=== PATIENT | female | born 1985 | race Caucasian/White ===

== ENCOUNTER 2016-05-05 18:52 | Inpatient (IN) | payer BC, OTHER ==
[2016-05-08] MEDS ORDERED: OXYTOCIN 10 UNIT/ML 1 ML VIAL IM PRN (06:02)
[2016-05-08] MEDS ORDERED: TERBUTALINE 1 MG/ML VIAL SQ PRN (06:02)
[2016-05-08] MEDS ORDERED: METHYLERGONOVINE 0.2 MG/ML 1 ML AMP IM PRN (06:02)
[2016-05-08] MEDS ORDERED: LIDOCAINE 1% (PF) 10 MG/ML (30 ML SDV) SQ PRN (06:02)
[2016-05-08] MEDS ORDERED: CARBOPROST TROMETHAMINE 250 MCG/ML 1 ML AMP IM PRN (06:02)
[2016-05-08 06:11] VITALS: BMI 39.1
[2016-05-08] MEDS ORDERED: OXYTOCIN 30 UNITS/500 ML NS 30 UNIT in SALINE 1 500ML.BAG IV SCH ×2 (06:15→17:15)
[2016-05-08 06:19] LABS: Basophils # (A) 0.1 k/uL (0-0.2); Basophils % (A) 1 %; CH 28.9; CHCM 33.7; Eosinophils # (A) 0.4 k/uL (0-0.7); Eosinophils % (A) 2 %; HCT 35.4 % (34.0-46.0); HDW 3.04; HGB 11.7 gm/dL (11.4-16.0); Luc # (Auto) 0.21; Luc % (Auto) 1; Lymphocytes # (A) 2.5 k/uL (1.0-4.8); Lymphocytes % (A) 16 %; MCH 28.5 pg (25.0-35.0); MCHC 33.1 g/dL (31.0-37.0); MCV 86.1 fL (80.0-100.0); Mean Platelet Volume 8.5; Monocytes # (A) 0.6 k/uL (0-1.0); Monocytes % (A) 4 %; Neutrophils # (A) 11.5 k/uL (1.3-7.7); Neutrophils % (A) 75 %; RBC 4.11 m/uL (3.80-5.40); RDW 13.4 % (11.5-15.5); WBC 15.3 k/uL (3.8-10.6); WBC (Perox) 15.79
[2016-05-08] MEDS: LACTATED RINGERS 1,000 ML IV SCH ×3 (06:24→17:38)
--- NOTE | 2016-05-08 09:14 | P.HPOB ---
History of Present Illness H&P Date: 05/08/16 Chief Complaint: induction of labor 30 year old presents at 40 weeks 3 days for induction of labor. Her cervix is 2/60/-2 and she is melisa irregularly. heart tones are 135-140 with moderate variability and reactive. Review of Systems All systems: negative Constitutional: Denies chills, Denies fever Eyes: denies blurred vision, denies pain Ears, nose, mouth and throat: Denies headache, Denies sore throat Cardiovascular: Denies chest pain, Denies shortness of breath Respiratory: Denies cough Gastrointestinal: Denies abdominal pain, Denies diarrhea, Denies nausea, Denies vomiting Genitourinary: Denies dysuria, Denies hematuria Musculoskeletal: Denies myalgias Integumentary: Denies pruritus, Denies rash Neurological: Denies numbness, Denies weakness Psychiatric: Denies anxiety, Denies depression Endocrine: Denies fatigue, Denies weight change Past Medical History Past Medical History: No Reported History Additional Past Medical History / Comment(s): OB history: First was a vaginal delivery. This is her second and she has had care with me since 12 weeks. A+, abs neg, Rub Imm, RPR NR, Hep B neg, HIV NR. normal anatomy US. abnormal 1hr but normal 3hr GTT. History of Any Multi-Drug Resistant Organisms: None Reported Past Surgical History: No Surgical Hx Reported Additional Past Surgical History / Comment(s): [place] tooth extractions Past Anesthesia/Blood Transfusion Reactions: No Reported Reaction Past Psychological History: No Psychological Hx Reported Smoking Status: Current every day smoker Past Alcohol Use History: None Reported Past Drug Use History: None Reported - Past Family History Father Family Medical History: Hypertension Mother Family Medical History: Cancer, COPD Additional Family Medical History / Comment(s): of pancreatic cancer Medications and Allergies Home Medications Medication Instructions Recorded Confirmed Type Pnv with Ca,No.72/Iron/FA 1 tab PO DAILY 12/03/15 05/08/16 History [ Plus Tablet] Allergies Allergy/AdvReac Type Severity Reaction Status Date / Time amoxicillin Allergy Anaphylaxis Verified 05/08/16 06:01 Penicillins Allergy Anaphylaxis Verified 05/08/16 06:01 Exam Osteopathic Statement: *. No significant issues noted on an osteopathic structural exam other than those noted in the History and Physical/Consult. - Vital Signs Vital signs: Vital Signs Temp Pulse Resp BP 05/08/16 06:05 96.9 F L 73 16 134/81 Intake and Output 05/07/16 05/08/16 05/08/16 22:59 06:59 14:59 Other: Weight 106.594 kg HEart: RRR Lungs: CTAB ABdomen: soft, nontender Extremeties: neg hossein's Results Result Diagrams: 05/08/16 06:12 Abnormal Lab Results - Last 24 Hours (Table) 05/08/16 Range/Units 06:12 WBC 15.3 H (3.8-10.6) k/uL Neutrophils # 11.5 H (1.3-7.7) k/uL Assessment and Plan (1) Normal labor Status: Acute Plan: 1. Induction of labor with amniotomy and pitocin 2. anticipate normal vaginal delivery
[2016-05-08] MEDS ORDERED: BUTORPHANOL 1 MG/ML 1 ML VIAL IV PRN (12:36)
[2016-05-08] MEDS ORDERED: fentaNYL (PF) 50 MCG/ML 5 ML AMP ONE (13:49)
[2016-05-08] MEDS ORDERED: BUPIVACAINE (PF) 0.25% 30 ML VIAL ONE (13:49)
[2016-05-08] MEDS ORDERED: SODIUM CHLORIDE 0.9% 100 ML BAG ONE (13:49)
[2016-05-08] MEDS ORDERED: BUPIVACAINE (PF) 0.25% 25 ML, fentaNYL (PF) 200 MCG in SODIUM CHLORIDE 0.9% 71 ML EPIDURAL ONE (14:08)
[2016-05-08] MEDS ORDERED: diphenhydrAMINE 50 MG CAP PO PRN (17:04)
[2016-05-08] MEDS ORDERED: ACETAMINOPHEN TAB 325 MG TAB PO PRN (17:04)
[2016-05-08] MEDS ORDERED: LANOLIN CREAM 5 GM TUBE TOPICAL PRN (17:04)
[2016-05-08] MEDS ORDERED: diphenhydrAMINE 25 MG CAP PO PRN (17:04)
[2016-05-08] MEDS ORDERED: SIMETHICONE 80 MG CHEWABLE PO PRN (17:04)
[2016-05-08] MEDS ORDERED: diphenhydrAMINE 50 MG/ML 1 ML VIAL IVP PRN ×2 (17:04)
[2016-05-08] MEDS ORDERED: HYDROCORTISONE 2.5% RECTAL CREAM 30 GM TUBE RECTAL PRN (17:04)
[2016-05-08] MEDS ORDERED: ZOLPIDEM 5 MG TAB PO PRN (17:04)
[2016-05-08] MEDS ORDERED: Acetaminophen-Codeine 300-30mg TAB PO PRN (17:04)
--- NOTE | 2016-05-08 17:06 | P.PROBDLV ---
Vaginal Delivery Note - . Vaginal Delivery Note: 30-year-old presented at 40 weeks and 3 days for induction of labor. Her cervix was 2 cm dilated, 60% effaced, -2 station. heart tones 130-135 with moderate variability and reactive. Amniotomy was performed at 9:07 AM, clear fluid noted. Pitocin was also started. When she was about 5 cm she did get an epidural. Her cervix was completely dilated by 1643. She pushed, and delivered a viable male over midline episiotomy under epidural anesthesia at 1649. Head delivered OA, anterior shoulder delivered gentle downward traction followed by posterior shoulder and rest of body. Nose and mouth bulb suctioned, cord clamped and cut, placed on mother's abdomen. Apgars 9, 9, weight 9 lbs. 8 oz. Placenta delivered spontaneously, intact with three-vessel cord at 1651. Vagina, cervix, and perineum were inspected. Second degree midline episiotomy was repaired with 2-0, and 3-0 Vicryl. Estimated blood loss 200 mL. Mother and baby in stable condition.
[2016-05-08] MEDS: WITCH HAZEL 1 EACH MED..PAD TOPICAL PRN (17:38)
[2016-05-08] MEDS: BENZOCAINE/MENTHOL SPRAY 1 GM/SPRAY AEROSOL TOPICAL PRN (17:38)
[2016-05-08] MEDS: SENNOSIDES-DOCUSATE SODIUM 1 EACH TAB PO SCH (19:30)
[2016-05-08] MEDS: Acetaminophen-Codeine 300-30mg TAB PO PRN (20:03)
[2016-05-09] MEDS: IBUPROFEN 600 MG TAB PO PRN ×2 (00:25→12:23)
[2016-05-09] MEDS: Acetaminophen-Codeine 300-30mg TAB PO PRN ×2 (03:54→08:47)
--- NOTE | 2016-05-09 07:20 | P.DS ---
Providers Date of admission: 05/08/16 05:51 Expected date of discharge: 05/09/16 Attending physician: Patience Glasgow Primary care physician: Robert Mcclain - Discharge Diagnosis(es) (1) Normal labor Current Visit: Yes Status: Resolved (2) Normal vaginal delivery Current Visit: Yes Status: Acute Hospital Course: Patient presented for induction of labor at 40 weeks and 3 days. She underwent a normal vaginal delivery. Her course was uncomplicated. She is having some perineal pain control with Motrin and Tylenol 3. She denies nausea , vomiting, chest pain, shortness of breath or calf pain. She'll be discharged home on day #1 in stable condition to follow-up with me in 6 weeks. Plan - Discharge Summary New Discharge Prescriptions: Acetaminophen-Codeine 300-30mg [Tylenol w/codeine #3] 2 each PO Q4HR PRN #30 tab PRN Reason: Moderate To Severe Pain Ibuprofen [Motrin] 600 mg PO Q6HR PRN #30 tab PRN Reason: Mild Pain Or Fever >= 100.5 Discharge Medication List Pnv with Ca,No.72/Iron/FA [ Plus Tablet] 1 tab PO DAILY 12/03/15 [ History] Acetaminophen-Codeine 300-30mg [Tylenol w/codeine #3] 2 each PO Q4HR PRN #30 tab 05/09/16 [Rx] Ibuprofen [Motrin] 600 mg PO Q6HR PRN #30 tab 05/09/16 [Rx] Follow up Appointment(s)/Referral(s): Patience Glasgow DO [Doctor of Osteopathic Medicine] - 6 Weeks Discharge Disposition: HOME SELF-CARE
[2016-05-09] MEDS: SENNOSIDES-DOCUSATE SODIUM 1 EACH TAB PO SCH (08:53)
[2016-05-09 12:16] VITALS: PULSE 72
[2016-05-09 16:58] VITALS: BP 123/73; RESP 17; TEMP 98.4
[2016-05-09] MEDS: BENZOCAINE/MENTHOL SPRAY 1 GM/SPRAY AEROSOL TOPICAL PRN (17:45)
[2016-05-09] MEDS: WITCH HAZEL 1 EACH MED..PAD TOPICAL PRN (17:45)
== END 2016-05-09 17:50 | disposition home or self-care (01) | DRG 775 ==
LOC: 4FBP 05-08 05:51
PROVIDERS: ADMIT Obstetrics & Gynecology; ATTEND Obstetrics & Gynecology
PROC: 3E0R3CZ (ICD-10-PCS; principal; 2016-05-08)
PROC: 10E0XZZ Delivery of Products of Conception, External Approach (ICD-10-PCS; principal; 2016-05-08)
PROC: 3E033VJ Introduction of Other Hormone into Peripheral Vein, Percutaneous Approach (ICD-10-PCS; principal; 2016-05-08)
PROC: 10907ZC Drainage of Amniotic Fluid, Therapeutic from Products of Conception, Via Natural or Artificial Opening (ICD-10-PCS; principal; 2016-05-08)
PROC: 0W8NXZZ Division of Female Perineum, External Approach (ICD-10-PCS; principal; 2016-05-08)
PROC: 00HU33Z Insertion of Infusion Device into Spinal Canal, Percutaneous Approach (ICD-10-PCS; principal; 2016-05-08)
DX: O48.0 Post-term pregnancy (principal); F17.200 Nicotine dependence, unspecified, uncomplicated; Z37.0 Single live birth; O99.334 Smoking (tobacco) complicating childbirth; Z3A.40 40 weeks gestation of pregnancy; Z88.0 Allergy status to penicillin
CPT/HCPCS: 85025; 88307

== ENCOUNTER → 2019-01-31 | Outpatient (CLI) | payer BC ==
[2019-01-31 10:06] LABS: Basophils # (A) 0.1 k/uL (0-0.2); Basophils % (A) 1 %; Eosinophils # (A) 0.3 k/uL (0-0.7); Eosinophils % (A) 2 %; HCT 43.1 % (34.0-46.0); Lymphocytes # (A) 2.5 k/uL (1.0-4.8); Lymphocytes % (A) 15 %; MCH 30.8 pg (25.0-35.0); MCHC 32.5 g/dL (31.0-37.0); Mean Platelet Volume 7.2; Monocytes # (A) 0.7 k/uL (0-1.0); Monocytes % (A) 4 %; Neutrophils # (A) 12.4 k/uL (1.3-7.7); Neutrophils % (A) 76 %; Platelet Count 301 k/uL (150-450); RBC 4.53 m/uL (3.80-5.40); RDW 12.5 % (11.5-15.5); WBC 16.3 k/uL (3.8-10.6)
== END | disposition home or self-care (01) ==
LOC: LABPAT 08:40
PROVIDERS: ATTEND Obstetrics & Gynecology
DX: Z01.812 Encounter for preprocedural laboratory examination (principal)
CPT/HCPCS: 85025

== ENCOUNTER 2019-02-07 06:57 | Day surgery (SDC) | payer BC ==
[2019-02-05 15:59] VITALS: BMI 35.7
[~2019-02-07 06:57] MED LIST: DEXAMETHASONE SOD PHOSPHATE 10 MG/ML 1 ML VIAL IV ONE; HYDROmorphone 0.5 MG/0.5 ML SYRINGE IVP PRN; LACTATED RINGERS 1,000 ML IV SCH; MIDAZOLAM 2 MG/2 ML VIAL IV PRN; ONDANSETRON 4 MG/2 ML VIAL IVP ONE; Pre Op ABX Message 1 EACH MISC MISCELLANE ONE; SCOPOLAMINE 1.5MG/72HR PATCH TRANSDERM ONE
[2019-02-07] MEDS ORDERED: LIDOCAINE 1% 20 ML VIAL (10MG/ML) FOR IV START INTRADERMA ONE (07:29)
--- NOTE | 2019-02-07 07:43 | P.HPOB ---
History of Present Illness H&P Date: 02/07/19 Chief Complaint: Family planning 33 year old presents for laparoscopic tubal ligation. Review of Systems All systems: negative Constitutional: Denies chills, Denies fever Eyes: denies blurred vision, denies pain Ears, nose, mouth and throat: Denies headache, Denies sore throat Cardiovascular: Denies chest pain, Denies shortness of breath Respiratory: Denies cough Gastrointestinal: Denies abdominal pain, Denies diarrhea, Denies nausea, Denies vomiting Genitourinary: Denies dysuria, Denies hematuria Musculoskeletal: Denies myalgias Integumentary: Denies pruritus, Denies rash Neurological: Denies numbness, Denies weakness Psychiatric: Denies anxiety, Denies depression Endocrine: Denies fatigue, Denies weight change Past Medical History Past Medical History: No Reported History Additional Past Medical History / Comment(s): small stomach ulcer History of Any Multi-Drug Resistant Organisms: None Reported Past Surgical History: No Surgical Hx Reported Additional Past Surgical History / Comment(s): [place] tooth extractions Past Anesthesia/Blood Transfusion Reactions: No Reported Reaction Additional Past Anesthesia/Blood Transfusion Reaction / Comment(s): never has had general anesthesia or blood transfusion Smoking Status: Current every day smoker - Past Family History Father Family Medical History: Hypertension Mother Family Medical History: Cancer, COPD Additional Family Medical History / Comment(s): of pancreatic cancer Medications and Allergies Home Medications Medication Instructions Recorded Confirmed Type No Known Home Medications 02/05/19 02/07/19 History Allergies Allergy/AdvReac Type Severity Reaction Status Date / Time amoxicillin Allergy Anaphylaxis Verified 02/07/19 07:16 Penicillins Allergy Anaphylaxis Verified 02/07/19 07:16 Exam Osteopathic Statement: *. No significant issues noted on an osteopathic structural exam other than those noted in the History and Physical/Consult. Vital Signs Temp Pulse Resp Pulse Ox 02/07/19 07:16 97.5 F L 60 16 98 Intake and Output 02/06/19 02/07/19 02/07/19 22:59 06:59 14:59 Other: Weight 97.749 kg Heart: Regular rate and rhythm Lungs: Clear to auscultation bilaterally Abdomen: Soft, nontender Extremities: Negative Homans sign Assessment and Plan (1) Family planning Current Visit: Yes Status: Acute Code(s): Z30.09 - ENCOUNTER FOR OTH GENERAL CNSL AND ADVICE ON CONTRACEPTION SNOMED Code(s): 737002346 Plan: 1. Laparoscopic tubal ligation
[2019-02-07] MEDS ORDERED: BUPIVACAINE (PF) 0.25% 30 ML VIAL SQ ONE ×2 (07:56→08:32)
[2019-02-07] MEDS ORDERED: LIDOCAINE 1% INJ 10MG/ML (20 ML MDV) ONE (07:58)
[2019-02-07] MEDS ORDERED: ROCURONIUM BROMIDE 10 MG/ML 10 ML VIAL IV ONE (07:58)
[2019-02-07] MEDS ORDERED: fentaNYL (PF) 50 MCG/ML 2 ML AMP ONE (07:58)
[2019-02-07] MEDS ORDERED: HYDROmorphone (PF) 1 MG/ML ONE (07:58)
[2019-02-07] MEDS ORDERED: PROPOFOL 10 MG/ML 20 ML VIAL IV ONE (07:58)
[2019-02-07] MEDS ORDERED: MIDAZOLAM 2 MG/2 ML VIAL ONE (07:58)
[2019-02-07] MEDS ORDERED: NEOSTIGMINE 1 MG/ML 10 ML VIAL ONE (07:58)
[2019-02-07] MEDS ORDERED: GLYCOPYRROLATE 0.2 MG/ML 2 ML VIAL ONE (07:58)
[2019-02-07] MEDS ORDERED: ALBUTEROL INHALER 60 PUFF/8 GM INHALER INHALATION ONE (07:58)
[2019-02-07 08:56] VITALS: TEMP 97
--- NOTE | 2019-02-07 08:57 | P.OP ---
Date of Procedure: 02/07/19 Preoperative Diagnosis: 1. Family planning Postoperative Diagnosis: 1. Family planning Procedure(s) Performed: Laparoscopic tubal ligation Anesthesia: ROBINSON Surgeon: Patience Glasgow Estimated Blood Loss (ml): 3 IV fluids (ml): 300 Urine output (ml): 30 Pathology: none sent Condition: stable Disposition: PACU Description of Procedure: Patient was taken to the operating room where general anesthesia was obtained without difficulty. She was prepped and draped in normal sterile fashion in the dorsal lithotomy position, legs placed in the Nick stirrups. Bladder drained of all urine. [place] speculum placed in the vagina and the anterior lip the cervix was grasped with single-tooth tenaculum. The uterus is sounded to 7 cm and the kroner manipulator was placed. Attention was then turned to the abdomen and gloves were changed. A 10 mm infraumbilical incision was made the scalpel and 10 mm optical trocar was placed under direct visualization. A 5 mm suprapubic Incision was made and a 5 mm optical trocar was placed under direct visualization. Survey of the pelvis revealed normal uterus tubes and ovaries. The left fallopian tube was grasped with a Kleppinger and fulgurated 2-3 cm on this side in the ampullar portion. The right fallopian tube was grasped with a Kleppinger and fulgurated 2-3 cm in the ampullar portion. All instruments were then removed from the abdomen and vagina. The 10 mm infraumbilical incision was closed with 0 Vicryl and the fascial layer and then 4-0 Vicryl in a subcuticular fashion. The 5 mm incision was closed with 4-0 Vicryl in a subcuticular fashion. Patient tolerated procedure well, sponge and instrument counts correct 2 and she was taken to recovery room in stable condition.
[2019-02-07 09:07] VITALS: RESP 16
[2019-02-07] MEDS ORDERED: KETOROLAC 30 MG/ML 1 ML VIAL IVP ONE (09:18)
[2019-02-07 09:47] VITALS: BP 98/60; PULSE 56
== END 2019-02-07 10:26 | disposition home or self-care (01) ==
LOC: OR 06:57
PROVIDERS: ATTEND Obstetrics & Gynecology
DX: Z30.2 Encounter for sterilization (principal); F17.200 Nicotine dependence, unspecified, uncomplicated; Z82.49 Family history of ischemic heart disease and other diseases of the circulatory system; Z88.0 Allergy status to penicillin; Z80.8 Family history of malignant neoplasm of other organs or systems
CPT/HCPCS: 81025; 58670; J2250; J1100; J2710; J2405; J2001; J3010; J1885; J1170; J2704

== ENCOUNTER 2019-10-05 07:20 | Emergency (ER) | payer BC ==
[2019-10-05] MEDS ORDERED: SULFAMETH-TMP DS STARTER PACK 2 TAB BTL PO STA (07:56)
--- NOTE | 2019-10-05 07:56 | ED ---
General Adult HPI - General Chief complaint: Skin/Abscess/Foreign Body Stated complaint: abscess on abd Time Seen by Provider: 10/05/19 07:29 Source: patient, RN notes reviewed, old records reviewed Mode of arrival: ambulatory Limitations: no limitations - History of Present Illness Initial comments: Patient is a 33-year-old female who presents the emergency department today for evaluation with complaints of an abscess over the left side of her abdomen and her abdominal fold and groin. Patient reports that she's noticed this for the past few days. Patient states that became more painful today when she woke. She denies any fevers or chills. She denies any chest pain shortness of breath, nausea or vomiting. She reports no history of resistant skin infections. She does have history of ALLERGIC reaction to penicillins. Patient reports that the area of the abscess occurred because of rubbing of her waistband. - Related Data Previous Rx's Medication Instructions Recorded Acetaminophen-Codeine 300-30mg 2 tab PO Q6H PRN #20 tablet 02/07/19 [Tylenol #3] Ibuprofen [Motrin] 600 mg PO Q6HR PRN #30 tab 02/07/19 Sulfamethox-Tmp 800-160Mg [Bactrim 1 tab PO Q12HR #20 tab 10/05/19 DS 800-160 mg] Allergies Allergy/AdvReac Type Severity Reaction Status Date / Time amoxicillin Allergy Anaphylaxis Verified 10/05/19 07:27 Penicillins Allergy Anaphylaxis Verified 10/05/19 07:27 Review of Systems ROS Statement: Those systems with pertinent positive or pertinent negative responses have been documented in the HPI. ROS Other: All systems not noted in ROS Statement are negative. Past Medical History Past Medical History: No Reported History Additional Past Medical History / Comment(s): OB history: First was a vaginal delivery. This is her second and she has had care with [facility] since 12 weeks. A+, abs neg, Rub Imm, RPR NR, Hep B neg, HIV NR. normal anatomy US. abnormal 1hr but normal 3hr GTT. History of Any Multi-Drug Resistant Organisms: None Reported Past Surgical History: No Surgical Hx Reported Additional Past Surgical History / Comment(s): [place] tooth extractions Past Anesthesia/Blood Transfusion Reactions: No Reported Reaction Past Psychological History: No Psychological Hx Reported Past Alcohol Use History: None Reported - Past Family History Father Family Medical History: Hypertension Mother Family Medical History: Cancer, COPD Additional Family Medical History / Comment(s): of pancreatic cancer General Exam - General Exam Comments Initial Comments: 33-year-old female. Alert and oriented 3. No distress. Limitations: no limitations General appearance: alert, in no apparent distress Head exam: Present: atraumatic, normocephalic, normal inspection Eye exam: Present: normal appearance, PERRL, EOMI. Absent: scleral icterus, conjunctival injection, periorbital swelling ENT exam: Present: normal exam, mucous membranes moist Neck exam: Present: normal inspection. Absent: tenderness, meningismus, lymphadenopathy Respiratory exam: Present: normal lung sounds bilaterally. Absent: respiratory distress, wheezes, rales, rhonchi, stridor Cardiovascular Exam: Present: regular rate, normal rhythm, normal heart sounds. Absent: systolic murmur, diastolic murmur, rubs, gallop, clicks GI/Abdominal exam: Present: soft, normal bowel sounds, other (Patient has evidence of an abscess over the left inguinal groin region between his stomach fold and the groin. The abscess measures 2 cm. Minimal surrounding erythema.). Absent: distended, tenderness, guarding, rebound, rigid Extremities exam: Present: normal inspection, full ROM, normal capillary refill. Absent: tenderness, pedal edema, joint swelling, calf tenderness Back exam: Present: normal inspection Neurological exam: Present: alert, oriented X3, CN II-XII intact Psychiatric exam: Present: normal affect, normal mood Skin exam: Present: warm, dry, intact, normal color. Absent: rash Course Vital Signs 10/05/19 07:24 Temperature 98.6 F Pulse Rate 66 Respiratory 16 Rate Blood Pressure 135/84 O2 Sat by Pulse 100 Oximetry Procedures - Hydro Protocol (Time Out) Procedure Performed:: Incision and drainage of left groin abscess Performing Provider: Carmela Quinonez Nurse: Stacey Dumont Patient Identification (2 identifiers required): Chart, Verbal, Arm Band, Name, Birthdate, Medical Record Number Patient/Legal Wharf Builder has Confirmed: Identity, Site, Procedure, Consent Site: Left groin Site Marked: Yes Site Verified With Patient/Guardian: Yes - Incision & Drainage Site: abdomen (Left inguinal region.) Size (cm): 2 I&D Cleaning Method: Iodine Sterile Field Used?: Yes Scalpel Used: #11 I&D Drainage Obtained: Pus, Blood Culture Obtained?: Yes Patient Tolerated Procedure: well, no complications Medical Decision Making - Medical Decision Making 33-year-old female presents to return today for abscess of her left inguinal groin region between abdomen. This occurred where her waistband rubs on her skin. At the same Patient has abscess measures 2 cm. This is cleaned and drained with an 11 blade needle approximately 4 mL Prelone fluid was removed. The area is small enough that there is no ability to pack the area. Wound cultures obtained. Discussed putting the Patient on antibiotic. Disposition Clinical Impression: Soft tissue abscess of inguinal region Disposition: HOME SELF-CARE Condition: Good Instructions (If sedation given, give patient instructions): Abscess Incision and Drainage (ED) Additional Instructions: Please use medication as discussed. Please follow up with family doctor if symptoms have not improved over the next two days. Please return to the emergency room if your symptoms increase or worsen or for any other concerns. Prescriptions: Sulfamethox-Tmp 800-160Mg [Bactrim DS 800-160 mg] 1 tab PO Q12HR #20 tab Is patient prescribed a controlled substance at d/c from ED?: No Referrals: Robert Mcclain DO [Primary Care Provider] - 1-2 days Tl Sharif DO [Doctor of Osteopathic Medicine] - 1-2 days Time of Disposition: 07:54
[2019-10-05 08:06] VITALS: BP 121/90; PULSE 60; RESP 18; TEMP 98.7
== END 2019-10-05 08:06 | disposition home or self-care (01) ==
LOC: EC 07:20
DX: L02.214 Cutaneous abscess of groin (principal); Z88.0 Allergy status to penicillin
CPT/HCPCS: 10060; 87070; 87205; 99283

== ENCOUNTER 2019-11-12 15:51 | Emergency (ER) | payer BC ==
[2019-11-12 15:55] VITALS: BP 124/81; PULSE 72; RESP 18; TEMP 98.5
--- NOTE | 2019-11-12 16:06 | ED ---
General Adult HPI - General Chief complaint: Skin/Abscess/Foreign Body Stated complaint: abscess on groin Time Seen by Provider: 11/12/19 15:56 Source: patient, RN notes reviewed Mode of arrival: ambulatory Limitations: no limitations - History of Present Illness Initial comments: 34-year-old female presents to the emergency department for possible abscess. Patient reports she has a possible abscess on her left lower abdomen. Patient states she had this before about a month ago and it was incised and drained. It has since resolved. Patient was on antibiotics at that time. Yesterday it started to feel little more swollen than it has over the past few weeks. Patient is concerned because she is going out of town this weekend and does not want it to reform. Patient tried to see her primary care provider but they told her just to come to the emergency room and did not see her. Patient does not have fevers.Patient has no other complaints at this time including shortness of breath, chest pain, abdominal pain, nausea or vomiting, headache, or visual changes. - Related Data Previous Rx's Medication Instructions Recorded Acetaminophen-Codeine 300-30mg 2 tab PO Q6H PRN #20 tablet 02/07/19 [Tylenol #3] Ibuprofen [Motrin] 600 mg PO Q6HR PRN #30 tab 02/07/19 Sulfamethox-Tmp 800-160Mg [Bactrim 1 tab PO Q12HR #20 tab 10/05/19 DS 800-160 mg] Sulfamethox-Tmp 800-160Mg [Bactrim 1 tab PO Q12HR #20 tab 11/12/19 DS 800-160 mg] Allergies Allergy/AdvReac Type Severity Reaction Status Date / Time amoxicillin Allergy Anaphylaxis Verified 11/12/19 15:55 Penicillins Allergy Anaphylaxis Verified 11/12/19 15:55 Review of Systems ROS Statement: Those systems with pertinent positive or pertinent negative responses have been documented in the HPI. ROS Other: All systems not noted in ROS Statement are negative. Past Medical History Past Medical History: No Reported History Additional Past Medical History / Comment(s): OB history: First was a vaginal delivery. This is her second and she has had care with me since 12 weeks. A+, abs neg, Rub Imm, RPR NR, Hep B neg, HIV NR. normal anatomy US. abnormal 1hr but normal 3hr GTT. History of Any Multi-Drug Resistant Organisms: None Reported Past Surgical History: No Surgical Hx Reported Additional Past Surgical History / Comment(s): [place] tooth extractions Past Anesthesia/Blood Transfusion Reactions: No Reported Reaction Past Psychological History: No Psychological Hx Reported Smoking Status: Current every day smoker Past Alcohol Use History: Occasional Past Drug Use History: None Reported - Past Family History Father Family Medical History: Hypertension Mother Family Medical History: Cancer, COPD Additional Family Medical History / Comment(s): of pancreatic cancer General Exam Limitations: no limitations General appearance: alert, in no apparent distress Head exam: Present: atraumatic, normocephalic, normal inspection Eye exam: Present: normal appearance, PERRL, EOMI. Absent: scleral icterus, conjunctival injection, periorbital swelling ENT exam: Present: normal exam, mucous membranes moist Neck exam: Present: normal inspection, full ROM. Absent: tenderness, meningismus, lymphadenopathy Respiratory exam: Present: normal lung sounds bilaterally. Absent: respiratory distress, wheezes, rales, rhonchi, stridor Cardiovascular Exam: Present: regular rate, normal rhythm, normal heart sounds. Absent: systolic murmur, diastolic murmur, rubs, gallop, clicks GI/Abdominal exam: Present: soft, tenderness (no tenderness of the left lower quadrant or abdomen. There is a 2 cm fluctuant area on the left lower quadrant however it is non-erythematous nontender. Appears more like scar tissue.), normal bowel sounds. Absent: distended, guarding, rebound, rigid Course Vital Signs 11/12/19 15:53 Temperature 98.5 F Pulse Rate 72 Respiratory 18 Rate Blood Pressure 124/81 O2 Sat by Pulse 99 Oximetry Procedures - Incision & Drainage Consent Obtained: verbal consent Site: abdomen Size (cm): 2 I&D Drainage Obtained: Blood Medical Decision Making - Medical Decision Making I did use 18-gauge needle to see if there is any purulent discharge and there was not. Patient is very concerned this is starting again and she will be gone this began. Therefore I did write patient a prescription of antibiotic and directed that she use warm compresses. I did also refer her to general surgeon as this could be recurrent. Patient will return here for any worsening symptoms. Disposition Clinical Impression: Abscess Disposition: HOME SELF-CARE Condition: Good Instructions (If sedation given, give patient instructions): Abscess (ED) Additional Instructions: please take antibiotic as directed. Use warm compresses. Follow-up with general surgery. Return to the emergency room for any worsening symptoms. Prescriptions: Sulfamethox-Tmp 800-160Mg [Bactrim DS 800-160 mg] 1 tab PO Q12HR #20 tab Is patient prescribed a controlled substance at d/c from ED?: No Referrals: Robert Mcclain DO [Primary Care Provider] - 1-2 days Agustina Miller MD [STAFF PHYSICIAN] - 1-2 days Time of Disposition: 16:05
== END 2019-11-12 16:11 | disposition home or self-care (01) ==
LOC: EC 15:51
DX: L02.214 Cutaneous abscess of groin (principal); F17.200 Nicotine dependence, unspecified, uncomplicated; Z88.0 Allergy status to penicillin
CPT/HCPCS: 10160; 99282

== ENCOUNTER → 2021-05-03 | Outpatient (CLI) | payer OTHER ==
--- NOTE | 2021-05-03 12:36 | US ---
EXAMINATION TYPE: US abdomen complete DATE OF EXAM: 05/03/2021 COMPARISON: NONE CLINICAL HISTORY: 35-year-old female R10.9 ABDOMINAL PAIN. TECHNIQUE: Multiple sonographic images of the abdomen are obtained. FINDINGS: EXAM MEASUREMENTS: Liver Length: 16.3 cm Gallbladder Wall: 0.3 cm CBD: 0.6 cm Spleen: 12.9 cm Right Kidney: 12.3 x 4.6 x 5.8 cm Left Kidney: 12.4 x 4.8 x 5.9 cm Pancreas: Pancreatic head and tail are secured by bowel gas shadowing. Visualized body within normal limits. Liver: slight increased echogenicity. No focal lesion. Gallbladder: No stones seen Evidence for sonographic Bajwa's sign: No CBD: Borderline in caliber. Spleen: wnl Right Kidney: No hydronephrosis or masses seen Left Kidney: No hydronephrosis or masses seen Upper IVC: wnl Abd Aorta: wnl IMPRESSION: 1. Slight increased echogenicity of the liver may represent mild fatty infiltration. 2. Bile duct caliber upper limits of normal at 6 mm. This may be chronic for the patient. Correlate w ith alkaline phosphatase and bilirubin levels to exclude early biliary obstruction. 3. No gallstones.
== END | disposition home or self-care (01) ==
LOC: RADUSWWP 07:26
PROVIDERS: ATTEND Family Medicine
DX: R10.9 Unspecified abdominal pain (principal)
CPT/HCPCS: 76700

== ENCOUNTER → 2024-03-27 | Outpatient (CLI) | payer BC ==
--- NOTE | 2024-03-27 16:23 | US ---
EXAMINATION TYPE: US thyroid st tissue head/neck DATE OF EXAM: 03/27/2024 COMPARISON: NONE CLINICAL INDICATION: Female, 38 years old with history of K21.9 GASTRO-ESOPHAGEAL REFLUX DISEASE WITH OUT ESO; FINDINGS: Right and left lateral neck scanned. Midline neck scanned. No sonographic evidence of mass or lesion. IMPRESSION: No sonographic abnormality identified. Correlate clinically. [facility], , 03/27/2024 4:21 PM
== END | disposition home or self-care (01) ==
LOC: RADUSWWP 15:47
PROVIDERS: ATTEND Family Medicine
DX: K21.9 Gastro-esophageal reflux disease without esophagitis (principal)
CPT/HCPCS: 76536